=== PATIENT | female | born 1985 | race Caucasian/White ===

== ENCOUNTER 2018-11-03 16:50 | Emergency (ER) | payer OTHER ==
--- NOTE | 2018-11-03 17:42 | ED Physician Documentation ---
Female Urogenital Problems - HISTORIAN Historian: patient - HPI Chief Complaint: Female Urogenital Problems Additional Information: Patient is a 33-year-old female who presents to the ER with c/o urinary issues. Patient states that she woke up this morning with alot of abdominal pressure and couldn't void. She went to [facility] and a cath was placed and she had 1800 cc out. They left the catheter in. She presents to the ER this evening because she states that she is urinating around the tube. Patient feels that she has an infection- c/o pressure. She is a Grav. 6 Para1 Misc 4 Onset: hours (Started this a.m.) Severity: mild Location of Pain: pelvic pain (pressure) - Vaginal Bleeding : 6 Para: 1 : 4 Description of Menstrual: irregular period(s) Where was Test Done: clinic (urine) Care: Yes Sexual History: active Contraceptive: none - Associated Symptoms Urinary Symptoms: discomfort w/ urination - ROS CONST: none GI/: nausea (from ), vomiting CVS/RESP: none EYES/ENT: none NEURO/PSYCH: none MS/SKIN/LYMPH: none - PAST HX Past History: spontaneous Other History: bladder infection Surgeries/Procedures: none Immunizations: UTD - SOCIAL HX Smoking History: non-smoker Alcohol Use: none Drug Use: none - FAMILY HX Family History: none - REVIEWED ASSESSMENTS Nursing Assessment Reviewed: Yes Vitals Reviewed: Yes ED Results Lab/Radiology - Orders Orders: ED Orders Category Date Time Status URINALYSIS Routine Lab 11/03/18 16:54 Ordered Female Urogenital Problems - EXAM General Appearance: no acute distress, alert EENT: eye inspection normal, ENT inspection normal, no signs of dehydration, [place] Neck: nml inspection Respiratory: breath sounds nml CVS: heart sounds normal Abdomen: soft, non-tender, nml bowel sounds Back: non-tender Skin: color nml, no rash, warm,dry Extremities: non-tender, normal range of motion Neuro: oriented X3, CN's nml as tested, motor nml, sensation nml, mood/affect nml, cognition normal Discharge Clincal Impression: Urinary tract infection during Referrals: Viky Leblanc DO [Primary Care Provider] - 2 Days Condition: Good Disposition: 01 HOME, SELF-CARE Decision to Admit: NO Decision Time: 18:10
[2018-11-03 18:21] VITALS: BP 108/80
[2018-11-04 00:55] LABS: APPEARANCE,URINE CLOUDY (CLEAR); COLOR,URINE YELLOW (YELLOW); OCCULT BLOOD,URINE 2+ (NEGATIVE); UROBILINOGEN URINE 0.2 Eu (0.2-1.0)
== END 2018-11-03 17:55 | disposition home or self-care (01) ==
LOC: ED 16:50
DX: O26.899 Other specified pregnancy related conditions, unspecified trimester (principal); Z3A.00 Weeks of gestation of pregnancy not specified
CPT/HCPCS: 81002; 87086; 99282; 99283

== ENCOUNTER 2018-12-15 08:18 | Emergency (ER) | payer OTHER | END 2018-12-15 08:53 | disposition home or self-care (01) | LOC: ED 08:18 | DX: O99.712 Diseases of the skin and subcutaneous tissue complicating pregnancy, second trimester (principal); L91.8 Other hypertrophic disorders of the skin; Z3A.20 20 weeks gestation of pregnancy | CPT/HCPCS: 99281; 99282 ==